=== PATIENT | male | born 1990 | race Caucasian/White ===

== ENCOUNTER 2020-05-17 05:15 | Emergency (ER) | payer SELFPAY ==
--- NOTE | ~2020-05-17 | XR_ITS ---
EXAMINATION: XR chest 1V portable EXAM DATE: 05/17/2020 06:02 INDICATION: Hematemesis. TECHNIQUE: Portable AP frontal chest x-ray was obtained. There is no prior study for comparison. FINDINGS: The lungs are clear. There are no pleural effusions. The cardiomediastinal silhouette is within normal limits. There is no pneumothorax suspected. The bones and soft tissues are unremarkab le. IMPRESSION: Unremarkable chest x-ray exam. Reviewed, dictated and finalized at location A.
[2020-05-17 05:19] VITALS: BP 142/81; PULSE 93; RESP 19; TEMP 36.2; O2SAT 100
--- NOTE | 2020-05-17 05:21 | ED.ABDPAIN ---
HPI - Abdominal Pain General Chief Complaint: Abdominal Pain Stated Complaint: stomach hurting more than normal Time Seen by Provider: 05/17/20 05:18 History of Present Illness HPI narrative: He had epigastric pain and multiple episodes of forceful vomiting this morning. This was followed by one episode of gross hematemesis. He produced a handful of blood. He reports about 7/10 epigastric pain. He has had pain and occasional vomiting due to acid reflux before. This is worse than usual. Related Data Allergies Allergy/AdvReac Type Severity Reaction Status Date / Time amoxicillin Allergy Dyspnea / Verified 05/17/20 05:41 SOB Sulfa (Sulfonamide AdvReac Gastrointestinal Verified 05/17/20 05:41 Antibiotics) Upset Review of Systems Review of Systems: All systems reviewed & are unremarkable except as noted in HPI and below Constitutional: Constitutional: Denies fever(s) ENT: Denies sore throat Cardiovascular: Cardiovascular: Denies chest pain Respiratory: Respiratory: Denies dyspnea Gastrointestinal: Gastrointestinal: Reports abdominal pain, Reports nausea and Reports vomiting Neurologic: Denies dizziness and Denies weakness Hematologic/Lymphatic: Hematologic/Lymphatic: Denies easy bleeding PMFSH Past Medical History Medical History (Updated 05/18/20 @ 00:00 by Everette Vázquez) GERD (gastroesophageal reflux disease) Social History Social History Gender identity (if verbalized by the patient): Male Exam Const: General: healthy appearing, no acute distress and alert Orientation/consciousness: patient oriented x3 HENMT: Head: normal to inspection Neck: Neck: normal visual inspection and no lymphadenopathy Chest: Chest palpation & inspection: no tenderness Resp: Effort & Inspection: normal respiratory effort Auscultation: clear to auscultation bilaterally, no rales, no rhonchi and no wheezes Cardio: Jugular venous distension: no JVD Rate: regular rate Rhythm: regular rhythm Heart sounds: no murmurs GI: Inspection: non-distended GI Palp: Yes Soft to palpation and No Tenderness to palpation present (GI) Skin: General skin exam: normal color Neuro: General: patient oriented x3 and moves all extremities Speech: normal speech Extrem: General: no edema Psych: Appearance: well kempt Affect: normal affect Course Vital Signs Vital signs: Vital Signs Temperature 36.2 C L 05/17/20 05:19 Pulse Rate 93 05/17/20 05:19 Respiratory Rate 19 05/17/20 05:19 Blood Pressure 142/81 H 05/17/20 05:19 Pulse Oximetry 100 05/17/20 05:19 Temperature 36.2 C L 05/17/20 05:19 Pulse Rate 77 05/17/20 07:12 Respiratory Rate 20 05/17/20 07:12 Blood Pressure 131/87 05/17/20 07:12 Pulse Oximetry 99 05/17/20 07:12 MDM - Abdominal Pain MDM Narrative Medical decision making narrative: History sounds most consistent with willa-dunn tear. Will get labs. Treat symptomatically and observe for signs of ongoing bleeding. Medical Records Attestation: I reviewed the patient's medical records. Lab Data Attestation: I reviewed the patient's lab results. Result diagrams: 05/17/20 05:32 05/17/20 05:32 Labs: Lab Results 05/17/20 05/17/20 Range/Units 05:32 05:32 WBC 8.7 (4.5-10.0) K/mm3 RBC 5.21 (4.6-6.20) M/mm3 Hgb 16.3 (14.0-18.0) g/dL Hct 46.4 (42.0-52.0) % MCV 89.1 (80-100) fl MCH 31.3 (26-34) pg MCHC 35.1 (32-36) g/dl RDW 12.0 (11.5-14.5) % Plt Count 270 (150-375) k/mm3 MPV 9.9 (7.4-10.4) fl Immature Gran % (Auto) 0.5 (0-0.5) % Neut % (Auto) 70.0 (45.5-73.1) % Lymph % (Auto) 21.6 (18.3-44.2) % [place] % (Auto) 6.5 (2.6-8.5) % Eos % (Auto) 0.9 (0-4.4) % Baso % (Auto) 0.5 (0.2-1.2) % Lymph # (Auto) 1.87 (0.9-3.2) K/mm3 [place] # (Auto) 0.6 (0.1-0.6) K/mm3 Eos # (Auto) 0.1 (0-0.3) K/mm3 Baso # (Auto) 0.0 (0.0-
[2020-05-17] MEDS: ONDANSETRON INJ 4 MG/2 ML VIAL IV PUSH (05:36)
[2020-05-17] MEDS: SODIUM CHLORIDE 0.9% IV 1,000 ML 999 ML IV CONT (05:36)
[2020-05-17] MEDS: PANTOPRAZOLE SODIUM IV 40 MG VIAL IV PUSH (05:36)
[2020-05-17 05:37] LABS: Basophils Percent Auto 0.5 % (0.2-1.2); Eosinophils Absolute Auto 0.1 K/mm3 (0-0.3); Eosinophils Percent Auto 0.9 % (0-4.4); Hematocrit 46.4 % (42.0-52.0); Hemoglobin 16.3 g/dL (14.0-18.0); Immature Granulocyte Absolute 0.04 K/mm3 (0.00-0.031); Immature Granulocyte Percent A 0.5 % (0-0.5); Lymphocytes Absolute Auto 1.87 K/mm3 (0.9-3.2); Lymphocytes Percent Auto 21.6 % (18.3-44.2); Mean Corpuscular HGB Conc 35.1 g/dl (32-36); Mean Corpuscular Hemoglobin 31.3 pg (26-34); Mean Corpuscular Volume 89.1 fl (80-100); Mean Platelet Volume 9.9 fl (7.4-10.4); Monocytes Absolute Auto 0.6 K/mm3 (0.1-0.6); Monocytes Percent Auto 6.5 % (2.6-8.5); Neutrophils Absolute Auto 6.1 K/mm3 (1.3-6.7); Platelet Count Result 270 k/mm3 (150-375); Red Blood Count 5.21 M/mm3 (4.6-6.20); White Blood Count 8.7 K/mm3 (4.5-10.0)
[2020-05-17 05:51] LABS: Alanine Aminotransferase 63 U/L (4-50); Albumin Level 4.9 g/dL (3.5-5.1); Alkaline Phosphatase 76 U/L (38-126); Anion Gap 12.9 mmol/L (7-16); Aspartate Amino Transferase 37 U/L (17-59); Bilirubin,Total 0.8 mg/dL (0.2-1.3); Blood Urea Nitrogen 13 mg/dL (9-20); Calcium 9.8 mg/dL (8.4-10.2); Carbon Dioxide 27 mmol/L (22-30); Chloride 101 mmol/L (98-107); Estimated CRCL calculation 108 ml/min; Estimated Glomerular Filt Rate > 60; Glucose 121 mg/dL (75-110); Lipase 106 U/L (23-300); Potassium 3.9 mmol/L (3.4-5.0); Sodium 137 mmol/L (137-145)
[2020-05-17 06:34] VITALS: BP 126/77; PULSE 63; RESP 18; O2SAT 98
[2020-05-17 07:12] VITALS: BP 131/87; PULSE 77; RESP 20; O2SAT 99
== END 2020-05-17 07:15 | disposition home or self-care (01) ==
PROVIDERS: Emergency Provider Emergency Medicine
DX: K22.6 Gastro-esophageal laceration-hemorrhage syndrome (principal); R11.2 Nausea with vomiting, unspecified; K21.9 Gastro-esophageal reflux disease without esophagitis
CPT/HCPCS: 36415; 71045; 80053; 83690; 85025; 96361; 96374; 96375; 99284; A9270; C9113; J2405; J7030

== ENCOUNTER 2020-09-15 17:53 | Emergency (ER) | payer SELFPAY ==
[2020-09-15 18:07] VITALS: BP 151/86; PULSE 101; RESP 20; TEMP 37.6; O2SAT 100
--- NOTE | 2020-09-15 18:07 | ED.GENADULT ---
HPI - General Adult General Chief complaint: Nausea/Vomiting/Diarrhea Stated complaint: Stomach pain/vomiting Time Seen by Provider: 09/15/20 18:07 Source: patient Mode of arrival: ambulatory Limitations: no limitations History of Present Illness HPI narrative: 30-year-old male patient presents to the [facility] with complaints of nausea, vomiting and epigastric pain for the past 1 to 2 days. Patient states he had similar symptoms to this a couple months ago and was seen in the ER was diagnosed with GERD. Patient was given prescriptions but never got them filled. Patient denies any fevers, body aches or chills. Denies any diarrhea. Patient states he did throw up this morning couple of times and states that there was blood. Patient states it was kind of bright red and mixed in with some mucus. Patient states the last time he ate was this morning and states he ate a leftover Thanksgiving meal from yesterday. Patient states he has not eaten anything since this morning. Patient states that the pain does get worse when laying down. Patient denies any abdominal pain. Patient does admit to a poor diet states he usually does drink a lot of carbonated beverages, a lot of junk food and a lot of high salty foods along with spicy food. Related Data Allergies Allergy/AdvReac Type Severity Reaction Status Date / Time amoxicillin Allergy Dyspnea / Verified 09/15/20 18:33 SOB Sulfa (Sulfonamide AdvReac Gastrointestinal Verified 09/15/20 18:33 Antibiotics) Upset Review of Systems Review of Systems: Narrative: CONSTITUTIONAL: Denies fever, chills, or sweats. EYES: Denies visual changes, redness, or discharge. ENT: Denies rhinorrhea, congestion, sore throat, or otalgia. CARDIOVASCULAR: Denies chest pain, palpitations, or edema. RESPIRATORY: Denies cough or dyspnea. GASTROINTESTINAL: Positive epigastric pain, positive nausea, vomiting, denies diarrhea. GENITOURINARY: Denies dysuria or hematuria. SKIN: Denies rash or itching. MUSCULOSKELETAL: Denies back pain, joint pain, or myalgia. NEUROLOGIC: Denies headache, numbness, or weakness. PSYCHIATRIC: Denies anxiety or depression. [facility] Past Medical History Medical History GERD (gastroesophageal reflux disease) Social History Social History Gender identity (if verbalized by the patient): Male Comments At the time of my signature I agree with nursing past medical history, surgical, social, and family history. There is no relevant family history pertinent to the presenting complaint. Exam Narrative: Exam Narrative: GENERAL: Well-appearing, well-nourished, and in no acute distress. HEAD: Normocephalic, atraumatic. EYES: PERRLA and EOMI. ENT: Nares clear, no rhinorrhea or epistaxis. Mucous membranes moist. NECK: Supple. No lymphadenopathy CHEST: Clear to auscultation. No respiratory distress. HEART: Regular rate and rhythm. No murmur heard. Normal peripheral pulses. ABDOMEN: Soft, flat, nondistended. No guarding, rebound tenderness, or rigid. No pulsatilla masses. Hypoactive bowel sounds present in all four quadrants. No organomegaly. Negative Stover?s sign. No periumbicial tenderness. No Supra public tenderness or distension. Good femoral pulses bilaterally. No hernia noted. No scars or surface trauma. EXTREMITIES: Normal range of motion. No edema. SKIN: Warm, dry, no rash. NEURO: No focal deficits. Alert and oriented x3. Course Vital Signs Vital signs: Vital Signs Temperature 37.6 C 09/15/20 18:07 Pulse Rate 101 H 09/15/20 18:07 Respiratory Rate 09/15/20 18:07 Blood Pressure 151/86 H 09/15/20 18:07 Pulse Oximetry 100 09/15/20 18:07 Temperature 37.6 C 09/15/20 18:07 Pulse Rate 101 H 09/15/20 18:07 Respiratory Rate 09/15/20 18:07 Blood Pressure 151/86 H 09/15/20 18:07 Pulse Oximetry 100 09/15/20 18:07 Vital signs reviewed
[2020-09-15] MEDS: ONDANSETRON HCL ODT 4 MG TABLET PO (18:19)
== END 2020-09-15 18:43 | disposition home or self-care (01) ==
PROVIDERS: Emergency Provider Nurse Practitioner Family
DX: K21.9 Gastro-esophageal reflux disease without esophagitis (principal)
CPT/HCPCS: 99213; A9270; G0463

== ENCOUNTER 2022-04-25 18:02 | Emergency (ER) | payer SELFPAY ==
[2022-04-25 18:20] VITALS: BP 133/76; PULSE 93; RESP 18; TEMP 37.3; O2SAT 100
--- NOTE | 2022-04-25 18:33 | ED.SKABFB ---
HPI - Skin/Abscess/Foreign Bdy General Chief complaint: Dental/Oral Stated complaint: abscess lt jaw Source: patient, RN notes reviewed and old records reviewed Mode of arrival: ambulatory Limitations: no limitations History of Present Illness HPI narrative: 31 year old male who presents to [facility] care with complaints of Related Data Allergies Allergy/AdvReac Type Severity Reaction Status Date / Time amoxicillin Allergy Dyspnea / Verified 09/15/20 18:33 SOB Sulfa (Sulfonamide AdvReac Gastrointestinal Verified 09/15/20 18:33 Antibiotics) Upset Review of Systems Review of Systems: CONSTITUTIONAL: Denies fever, chills, or sweats. EYES: Denies visual changes, redness, or discharge. ENT: Denies rhinorrhea, congestion, sore throat, or otalgia.facial swelling left side of face with dental pain #19 tooth CARDIOVASCULAR: Denies chest pain, palpitations, or edema. RESPIRATORY: Denies cough or dyspnea. GASTROINTESTINAL: Denies abdominal pain, nausea, vomiting, or diarrhea. GENITOURINARY: Denies dysuria or hematuria. SKIN: Denies rash or itching. MUSCULOSKELETAL: Denies back pain, joint pain, or myalgia. NEUROLOGIC: Denies headache, numbness, or weakness. PSYCHIATRIC: Positive history of anxiety or depression. All systems reviewed & are unremarkable except as noted in HPI and below PMFSH Past Medical History Medical History GERD (gastroesophageal reflux disease) History of dental problems Social History Social History Gender identity (if verbalized by the patient): Male Comments At time of signature, agree with nursing past medical, surgical, social and family history. There is no relevant family history pertinent to the presenting complaint Exam Narrative: GENERAL: Well-appearing, well-nourished, and in no acute distress. HEAD: Normocephalic, atraumatic. EYES: PERRLA and EOMI. ENT: Nares clear, no rhinorrhea or epistaxis. Mucous membranes moist.TM's normal with good light reflex, throat pink with no lesions or exudates. swelling and redness of gums around #19 tooth with obvious caries to tooth noted, no Tam angina noted, patient does have moderate of swelling to left side of face NECK: Supple. no lymphadenopathy CHEST: Clear to auscultation. No respiratory distress.SAO2 100% on room air HEART: Regular rate and rhythm. No murmur heard. Normal peripheral pulses. ABDOMEN: Soft, nontender, nondistended, normal active bowel sounds. EXTREMITIES: Normal range of motion. No edema. SKIN: Warm, dry, no rash. NEURO: No focal deficits. Alert and oriented x3. Course Course Level of Care: Express Care Visit Vital Signs Vital signs: Vital Signs Temperature 37.3 C 04/25/22 18:20 Pulse Rate 93 04/25/22 18:20 Respiratory Rate 18 04/25/22 18:20 Blood Pressure 133/76 04/25/22 18:20 Pulse Oximetry 100 04/25/22 18:20 Oxygen Delivery Room Air 04/25/22 18:20 Temperature 37.3 C 04/25/22 18:20 Pulse Rate 93 04/25/22 18:20 Respiratory Rate 18 04/25/22 18:20 Blood Pressure 133/76 04/25/22 18:20 Pulse Oximetry 100 04/25/22 18:20 Oxygen Delivery Room Air 04/25/22 18:20 MDM - Skin/Abscess/Foreign Bdy Differential Diagnosis Differential diagnosis: Likely abscess of skin or subcutaneous tissue, cellulitis, eczema and contact dermatitis Medical Records Attestation: I reviewed the patient's medical records. Critical Care Time Critical Care Time Critical Care Time: No Discharge Plan Discharge Clinical Impression: Dental abscess, Facial swelling Patient Disposition: Home, Self-Care Condition: Stable Instructions: Antibiotic Form, Dental Abscess (ED) Additional Instructions: Avoid temperature extremes May apply heat or ice to the face Gentle brushing and flossing Antibiotic as directed take all doses Tylenol for lesser pain Use ibuprofen regularly Follow-up
--- NOTE | 2022-04-25 19:04 | ED.DENTAL ---
HPI - Dental/Oral General Chief complaint: Dental/Oral Stated complaint: abscess lt jaw Source: patient, RN notes reviewed and old records reviewed Mode of arrival: ambulatory Limitations: no limitations History of Present Illness HPI Narrative: 31 year old male presents to [facility] care with complaints of swelling and pain to his left jaw area for the past 2 days with dental pain to #19 tooth with swelling and pain to the gum surrounding the tooth. Patient denies any difficulty swallowing or any trouble with his breathing. Patient reports that he has been taking Ibuprofen for his discomfort. Patient reports that he has had problems with his teeth for some time and has had previous dental abscess in front upper gum.Patient has had COVID vaccinations but no flu shot. MD Complaint: tooth pain Location: Tooth # (19) Onset (ago): day(s) (2) Treatment prior to arrival: oral analgesic Related Data Allergies Allergy/AdvReac Type Severity Reaction Status Date / Time amoxicillin Allergy Dyspnea / Verified 09/15/20 18:33 SOB Sulfa (Sulfonamide AdvReac Gastrointestinal Verified 09/15/20 18:33 Antibiotics) Upset Review of Systems Review of Systems: CONSTITUTIONAL: Denies fever, chills, or sweats. EYES: Denies visual changes, redness, or discharge. ENT: Denies rhinorrhea, congestion, sore throat, or otalgia.positive for dental pain to #19 tooth. CARDIOVASCULAR: Denies chest pain, palpitations, or edema. RESPIRATORY: Denies cough or dyspnea. GASTROINTESTINAL: Denies abdominal pain, nausea, vomiting, or diarrhea. GENITOURINARY: Denies dysuria or hematuria. SKIN: Denies rash or itching. MUSCULOSKELETAL: Denies back pain, joint pain, or myalgia. NEUROLOGIC: Denies headache, numbness, or weakness. PSYCHIATRIC: Positive for anxiety or depression. PMFSH Past Medical History Medical History GERD (gastroesophageal reflux disease) History of dental problems Social History Social History Gender identity (if verbalized by the patient): Male Comments At time of signature, agree with nursing past medical, surgical, social and family history. There is no relevant family history pertinent to the presenting complaint Exam Narrative: GENERAL: Well-appearing, well-nourished, and in no acute distress. HEAD: Normocephalic, atraumatic. EYES: PERRLA and EOMI. ENT: Nares clear, no rhinorrhea or epistaxis. Mucous membranes moist.TM's normal with good light reflex, throat pink with no lesions or exudates or tonsil swelling. #19 tooth has noted decay with abscess noted to gum surrounding tooth with swelling and swelling noted to face, No Tam angina noted, denies any difficulty with swallowing NECK: Supple. no lymphadenopathy CHEST: Clear to auscultation. No respiratory distress.SAO2 100% on room air HEART: Regular rate and rhythm. No murmur heard. Normal peripheral pulses. ABDOMEN: Soft, nontender, nondistended, normal active bowel sounds. EXTREMITIES: Normal range of motion. No edema. SKIN: Warm, dry, no rash. NEURO: No focal deficits. Alert and oriented x3. Course Course Level of Care: Express Care Visit Vital Signs Vital signs: Vital Signs Temperature 37.3 C 04/25/22 18:20 Pulse Rate 93 04/25/22 18:20 Respiratory Rate 18 04/25/22 18:20 Blood Pressure 133/76 04/25/22 18:20 Pulse Oximetry 100 04/25/22 18:20 Oxygen Delivery Room Air 04/25/22 18:20 Temperature 37.3 C 04/25/22 18:20 Pulse Rate 93 04/25/22 18:20 Respiratory Rate 18 04/25/22 18:20 Blood Pressure 133/76 04/25/22 18:20 Pulse Oximetry 100 04/25/22 18:20 Oxygen Delivery Room Air 04/25/22 18:20 MDM - Dental/Oral Differential Diagnosis Differential diagnosis: Likely gingival abscess, dental caries, toothache, dental abscess and other (dentalgia, facial swelling) Medical Records Attestation: I reviewed the patient's medica
== END 2022-04-25 19:20 | disposition home or self-care (01) ==
PROVIDERS: Emergency Provider Registered Nurse
DX: K04.7 Periapical abscess without sinus (principal); K21.9 Gastro-esophageal reflux disease without esophagitis
CPT/HCPCS: 99213; G0463

== ENCOUNTER 2022-07-24 12:51 | Inpatient (IN) | payer MEDICAID, SELFPAY ==
[2022-07-24] VITALS (7 sets, daily range): BP systolic 116–141; BP diastolic 67–89; PULSE 94–109; RESP 15–28; TEMP 36.7–37; O2SAT 92–97
--- NOTE | 2022-07-24 | ECHO_ITS ---
Patient Info Name: Pawel Cagle Age: 32 years : 1990 Gender: Male Ht: 75 in Wt: 245 lbs BSA: 2.45 m2 HR: 106 bpm BP: 135 / 87 mmHg Heart Rhythm: Tachycardia, Sinus Rhythm Exam Date: 07/24/2022 3:39 PM Exam Location: [facility] Patient Status: Inpatient Admit Date: 07/24/2022 Staff Ordering Physician: Pao Lucas NP [place]: Estelita Velázquez RDCS Attending Provider: Preet Leyva MD Referring Physician: Shayy LICONA; Exam Type: CA echo doppler color flow Study Info Indications - pulmonary embolism Complete two-dimensional, color flow and Doppler transthoracic echocardiogram is performed. Summary 1. Technically difficult study with limited views. Regional wall motion assessment limited due to poor endomyocardial border definition. 2. Left ventricular chamber dimension is normal. 3. Left ventricular systolic function is hyperdynamic, estimated at >70%. 4. There is mildly increased left ventricular wall thickness. 5. The left ventricular diastolic function is indeterminate. 6. Right ventricular systolic function is [id number] reduced with right ventricular free wall hypokinesis and sparing of the apex consistent with Melchor sign which can be seen with acute pulmonary embolism and/or right ventricular infarction. Clinical correlation advised. Findings communicated personally to Pao Lucas APN. 7. Right ventricular chamber dimension is mildly enlarged. 8. Right atrial chamber dimension is normal. 9. There is mild tricuspid valve regurgitation. 10. Unable to estimate PA systolic pressure due to poor spectral resolution of tricuspid regurgitant jet velocity. 11. Dilated inferior vena cava with <50% collapse upon inspiration consistent with elevated right atrial pressure, 10 mmHg. Left Ventricle Left ventricular chamber dimension is normal. Left ventricular systolic function is hyperdynamic, estimated at >70%. There is mildly increased left ventricular wall thickness. The left ventricular diastolic function is indeterminate. Technically difficult study with limited views. Regional wall motion assessment limited due to poor endomyocardial border definition. Right Ventricle Right ventricular chamber dimension is mildly enlarged. Right ventricular systolic function is [id number] reduced with right ventricular free wall hypokinesis and sparing of the apex consistent with Melchor sign which can be seen with acute pulmonary embolism and/or right ventricular infarction. Clinical correlation advised. Findings communicated personally to Pao Lucas APN. Left Atria Left atrial chamber dimension is normal. Right Atria Right atrial chamber dimension is normal. Aortic Valve The aortic valve is not well visualized. There is no aortic valve stenosis. There is no aortic valve regurgitation. Pulmonic Valve The pulmonic valve is not well visualized. Mitral Valve The mitral valve has normal leaflets. There is trace mitral valve regurgitation. Tricuspid Valve The tricuspid valve leaflets are normal. There is mild tricuspid valve regurgitation. Unable to estimate PA systolic pressure due to poor spectral resolution of tricuspid regurgitant jet velocity. Pericardium/Pleural The pericardium appears not well visualized. Inferior Vena Cava Dilated inferior vena cava with <50% collapse upon inspiration consistent with elevated right atrial pressure, 10 mmHg. Aorta The aortic root size at the sinus of Valsalva is normal.
--- NOTE | ~2022-07-24 | XR_ITS ---
EXAMINATION: XR chest 1V portable DATE: 07/24/2022 13:23 INDICATION: Chest pain. TECHNIQUE: A single frontal view of the chest was obtained on 2 radiographs. COMPARISON: Chest single view 05/17/2020 FINDINGS: The chest demonstrates clear lungs without pneumonia, pleural effusion, or pneumothorax. Th e heart size is normal. IMPRESSION: 1. No acute cardiopulmonary disease. Reviewed, dictated and finalized at location A.
--- NOTE | ~2022-07-24 | US_ITS ---
EXAMINATION:US venous doppler LE BI INDICATION:Pulmonary embolism. TECHNIQUE: Multiple grayscale, color flow and Doppler images of the right and left lower extremity de ep venous systems were obtained and reviewed. COMPARISON:CTA chest dated 07/24/2022 FINDINGS: The right common femoral, superficial femoral and popliteal veins demonstrate normal respir atory variation, augmentation and compressibility. Color flow is also seen within the posterior tibi al, peroneal, greater saphenous and profunda veins. There is deep venous thrombosis of the left popliteal and posterior tibial veins. IMPRESSION: 1: Deep venous thrombosis of the left popliteal and posterior tibial veins. Reviewed, dictated and finalized at location B.
--- NOTE | ~2022-07-24 | CT_ITS ---
EXAMINATION: CTA chest PE protocol DATE: 07/24/2022 14:11 CDT INDICATION: Shortness of breath with chest pain TECHNIQUE: Computed tomographic angiography (CTA) of the chest was performed with 100 mL Omnipaque-35 0 intravenous contrast. The dose-length product was 629.49 mGy-cm. Maximum intensity projection 3D-re constructions of the aorta and other arteries were constructed by the technologist on a separate work station. Automated exposure control and iterative reconstruction technique were employed. COMPARISON: None. FINDINGS: Study is technically adequate with extensive pulmonary embolism involving the main pulmonar y artery, right and left pulmonary arteries is as well as diffusely throughout the bilateral segmenta l and subsegmental pulmonary arteries, large thrombus burden. No significant pleural or pericardial e ffusion. There is minimal peripheral consolidation in the right lower lobe which may represent atelec tasis or pulmonary infarction. No endobronchial lesions. No suspicious pulmonary nodules or masses. N o pneumothorax. No thoracic lymphadenopathy. Upper abdomen is unremarkable. There is moderate thoraci c spondylosis with mild wedge compression deformities of multiple lower thoracic vertebra as well as accentuated thoracic kyphosis. IMPRESSION: 1. Extensive bilateral pulmonary embolism, large thrombus burden bilaterally. 2: Peripheral right lower lobe airspace disease which may represent atelectasis or pulmonary infarct. Dr. Keo Stringer discussed with Dr. Anaid Qureshi III, DO at 07/24/2022 14:13 CDT. Reviewed, dictated and finalized at location B.
--- NOTE | 2022-07-24 12:52 | ECG_ITS ---
Measurements Intervals [place] Rate: 92 P: 70 AK: 133 QRS: 73 QRSD: 99 T: 45 QT: 329 QTc: 408 Interpretive Statements SINUS RHYTHM BASELINE ARTIFACT NORMAL ECG NO PREVIOUS ECG AVAILABLE FOR COMPARISON Electronically Signed On 07-24-2022 15:24:20 CDT by Pawel Reis M.D.
[2022-07-24 13:12] LABS: Basophils Absolute Auto 0.1 K/mm3 (0.0-0.1); Basophils Percent Auto 0.5 % (0.2-1.2); Eosinophils Absolute Auto 0.2 K/mm3 (0-0.3); Eosinophils Percent Auto 1.6 % (0-4.4); Hematocrit 46.6 % (42.0-52.0); Hemoglobin 15.7 g/dL (14.0-18.0); Immature Granulocyte Absolute 0.05 K/mm3 (0.00-0.031); Immature Granulocyte Percent A 0.4 % (0-0.5); Lymphocytes Absolute Auto 2.41 K/mm3 (0.9-3.2); Lymphocytes Percent Auto 19.6 % (18.3-44.2); Mean Corpuscular HGB Conc 33.7 g/dl (32-36); Mean Corpuscular Volume 91.9 fl (80-100); Mean Platelet Volume 9.8 fl (7.4-10.4); Monocytes Absolute Auto 0.9 K/mm3 (0.1-0.6); Monocytes Percent Auto 7.6 % (2.6-8.5); Neutrophils Absolute Auto 8.6 K/mm3 (1.3-6.7); Neutrophils Percent Auto 70.3 % (45.5-73.1); Platelet Count Result 256 k/mm3 (150-375); Red Blood Count 5.07 M/mm3 (4.6-6.20); Red Cell Distribution Width 12.5 % (11.5-14.5); White Blood Count 12.3 K/mm3 (4.5-10.0)
--- NOTE | 2022-07-24 13:23 | ED.CHESTPAIN ---
HPI - Chest Pain General Chief Complaint: Chest Pain Stated Complaint: CHEST PAIN/SOB Time Seen by Provider: 07/24/22 13:12 History of Present Illness HPI narrative: Pt was picking up a door [employer] order today and became acutely short of breath. Pt says he has some pressure in his chest. Pt says he had trouble walking across parking lot due to SOB. Pt also says his left calf has been hurting for the last few days but denies injury. Pt has not had recent surgery or been on any long trips. Pt denies any FH of blood clots. Pt sasy the SOB is better when he is resting. Related Data Allergies Allergy/AdvReac Type Severity Reaction Status Date / Time amoxicillin Allergy Severe Swelling Verified 07/24/22 17:29 of Lip/Tongue/Throat Penicillins Allergy Severe Swelling Verified 07/24/22 17:29 of Lip/Tongue/Throat Sulfa (Sulfonamide AdvReac Intermediate Gastrointestinal Verified 07/24/22 17:29 Antibiotics) Upset Review of Systems Review of Systems: All systems reviewed & are unremarkable except as noted in HPI and below PMFSH Past Medical History Medical History (Updated 07/24/22 @ 16:27 by Pao Lucas NP) GERD (gastroesophageal reflux disease) History of dental problems Surgical History Surgical History History of dental surgery Family History Family History Father Acute myocardial infarction Blood clot in vein Lung cancer Mother Esophageal cancer Diabetes mellitus Social History Social History (Updated 07/24/22 @ 16:23 by Pao Lucas NP) Social History: The patient has no children. He now Lives in car since he broke up with his girlfriend. He is single. He works for [employer]. He used to smoke cigars and now vapes some. He does not have any durable power criminal attorney for healthcare. Code status full code Smoking status: Former smoker Tobacco type: cigars Alcohol intake: current Drinks per week: 1 Substance use: current Substance use type: marijuana Last use: 1 week ago Gender identity (if verbalized by the patient): Male Spiritual care concerns: No Exam Const: General: healthy appearing and no acute distress Nutritional Appearance: well nourished Orientation/consciousness: patient oriented x3 Limitations: no limitations HENMT: Head: normal to inspection Neck: Neck: normal visual inspection Chest: Chest palpation & inspection: normal inspection of the chest Resp: Effort & Inspection: tachypneic Auscultation: clear to auscultation bilaterally Cardio: Rate: regular rate Rhythm: regular rhythm GI: Auscultation: normal bowel sounds Skin: General skin exam: normal color Rashes: no rashes Wounds: no wounds Neuro: General: patient oriented x3 Cranial nerves: Yes Nystagmus not present Speech: normal speech Extrem: General: normal to inspection and no clubbing, cyanosis or edema Other: tender to palpation left calf no obvious swelling Psych: Mental Status: mental status grossly normal Affect: normal affect Attitude: cooperative Course Vital Signs Vital signs: Vital Signs Temperature 98.0 F 07/24/22 12:59 Pulse Rate 94 07/24/22 12:59 Respiratory Rate 20 07/24/22 12:59 Blood Pressure 116/67 07/24/22 12:59 Pulse Oximetry 97 07/24/22 12:59 Oxygen Delivery Room Air 07/24/22 12:59 Temperature 98.6 F 07/24/22 17:00 Pulse Rate 108 H 07/24/22 17:00 Respiratory Rate 22 H 07/24/22 17:00 Blood Pressure 141/89 H 07/24/22 17:00 Pulse Oximetry 95 07/24/22 17:00 Oxygen Delivery Room Air 07/24/22 13:22 MDM - Chest Pain Differential Diagnosis Differential diagnosis: Likely pneumothorax, atypical chest pain, st elevation myocardial infarction, costochondritis, chest pain and other (PE) Lab Data Result diagrams: 07/24/22 17:16 07/24/22 13:04 Labs: Lab R
[2022-07-24 13:24] LABS: Alanine Aminotransferase 27 U/L (6-50); Albumin Level 4.8 g/dL (3.5-5.1); Alkaline Phosphatase 98 U/L (38-126); Anion Gap 14 mmol/L (8-16); Aspartate Amino Transferase 27 U/L (17-59); Bilirubin,Total 0.7 mg/dL (0.2-1.3); Blood Urea Nitrogen 19 mg/dL (9-20); Calcium 9.7 mg/dL (8.4-10.2); Carbon Dioxide 29 mmol/L (22-30); Chloride 98 mmol/L (98-107); Estimated Glomerular Filt Rate > 60; Glucose 135 mg/dL (65-110); Lipase 74 U/L (23-300); Partial Thromboplastin Time 22.6 SECONDS (22.3-36.8); Potassium 3.8 mmol/L (3.4-5.0); Sodium 141 mmol/L (137-145)
[2022-07-24 13:35] LABS: Troponin I 0.031 ng/mL (0.000-0.034)
--- NOTE | 2022-07-24 14:40 | PM.IMHP ---
H&P: HPI History of Present Illness Date/Time: 07/24/22 14:40 Chief Complaint: Chest pain/shortness of breath Narrative: This is a 32-year-old male patient who has a past medical history of GERD and no other medical history. 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 The patient has been sleeping in his car. He has also been doing a lot of driving as well. The patient stated that his father had developed a DVT after he was diagnosed with cancer. Otherwise no other family members have had PEs or DVTs. The patient also stated that he had a pain in his left calf as well. He denies any injury or recent surgery. The patient is short of breath when resting. His venous Doppler shows deep vein thrombosis of the left popliteal and posterior tibial veins. CTA was read as the following 1. Extensive bilateral pulmonary embolism, large thrombus burden bilaterally. 2: Peripheral right lower lobe airspace disease which may represent atelectasis or pulmonary infarct. Hypercoagulation labs have been ordered and the patient was started on heparin drip. The patient is being admitted to observation status on the date of service of 07/24/2022. Review of Systems Review of Systems: See HPI All systems reviewed & are unremarkable except as noted in HPI and below Constitutional: Constitutional: Reports as per HPI and Reports no additional constitutional complaints Eyes: Eyes: Reports as per HPI and Reports no additional eye complaints ENT: Reports system reviewed and no additional complaints, except as documented and Reports Normal hearing present Cardiovascular: Cardiovascular: Reports no additional cardiovascular complaints Respiratory: Respiratory: Reports no additional respiratory complaints and Reports no additional respiratory complaints Gastrointestinal: Gastrointestinal: Reports as per HPI and Reports no additional gastrointestinal complaints Musculoskeletal: Musculoskeletal: Reports no additional musculoskeletal complaints Integumentary/Breasts: Skin/Breast: Reports system reviewed and no additional complaints, except as docu and Reports as per HPI Neurologic: Reports system reviewed and no additional complaints, except as documented, Reports as per HPI and Reports Normal hearing present Psychiatric: Psychiatric: Reports no additional psychiatric complaints and Reports as per HPI Endocrine: Endocrine: Reports no additional endocrine complaints Hematologic/Lymphatic: Hematologic/Lymphatic: Reports no additional hematologic/lymphatic complaints Allergic/Immunologic: Allergic/Immunologic: Reports no additional allergic/immunologic complaints [facility] Past Medical History Medical History (Updated 10/05/22 @ 16:27 by Pao Lucas NP) GERD (gastroesophageal reflux disease) History of dental problems Surgical History Surgical History History of dental surgery Family History Family History Father Acute myocardial infarction Blood clot in vein Lung cancer Mother Esophageal cancer Diabetes mellitus Social History Social History (Updated 07/24/22 @ 16:23 by Pao Lucas NP) Social History: The patient has no children. He now Lives in car since he broke up with his girlfriend. He is single. He works for [employer]. He used to smoke cigars and now vapes some. He does not have any durable power staff attorney for healthcare. Code status full code Gender identity (if verbalized by the patient): Male Meds Home Medications and Allergies Home Medications Medication Instructions Recorded Confirmed Type omeprazole 20 mg capsule,delayed 20 mg PO BID #60 caps 09/15/20 04/25/22 Rx release clindamycin HCl 300 mg capsule 300 mg PO Q8H #30 caps 04/25/22 Rx Allergies Allergy/AdvReac Type Severity Reaction Status
[2022-07-24] MEDS: HEPARIN SODIUM 5,000 UNITS/ML VIAL 7500 UNITS IV PUSH ×2 (15:16→21:30)
[2022-07-24] MEDS: HEPARIN SOD/D5W 100 UNITS/ML 25,000 UNITS/250 ML BAG 15 UNITS IV CONT (15:17)
[2022-07-24 15:25] LABS: SARS-CoV-2 RNA PCR Negative
[2022-07-24] MEDS: PANTOPRAZOLE SODIUM IV 40 MG VIAL IV PUSH ×2 (16:27→21:02)
[2022-07-24 16:51] LABS: Troponin I 0.907 ng/mL (0.000-0.034)
--- NOTE | 2022-07-24 16:59 | ADMGEN ---
This patient, Pawel Cagle, was admitted to IMU Room 206-01 at 1648 on 07/24/2022. Patient/family oriented to hospital policies and general routines including ID bracelet, bed and alarms, visiting hours, pain management, procedures, bathroom and other care routines, personal items, smoking policy, room service/diet, and visiting hours. Information on how to activate the Rapid Response Team has been discussed. Patient/Family are encouraged to report perceived risks to care and to ask questions if they do not understand what they are told or what they should do.
[2022-07-24 17:28] LABS: Basophils Percent Auto 0.3 % (0.2-1.2); Eosinophils Percent Auto 0.3 % (0-4.4); Hematocrit 46.5 % (42.0-52.0); Hemoglobin 16.1 g/dL (14.0-18.0); Immature Granulocyte Absolute 0.07 K/mm3 (0.00-0.031); Immature Granulocyte Percent A 0.5 % (0-0.5); Lymphocytes Percent Auto 12.2 % (18.3-44.2); Mean Corpuscular HGB Conc 34.6 g/dl (32-36); Mean Corpuscular Hemoglobin 30.7 pg (26-34); Mean Corpuscular Volume 88.6 fl (80-100); Mean Platelet Volume 9.7 fl (7.4-10.4); Monocytes Absolute Auto 0.6 K/mm3 (0.1-0.6); Monocytes Percent Auto 4.4 % (2.6-8.5); Neutrophils Absolute Auto 10.8 K/mm3 (1.3-6.7); Neutrophils Percent Auto 82.3 % (45.5-73.1); Platelet Count Result 215 k/mm3 (150-375); Red Blood Count 5.25 M/mm3 (4.6-6.20); Red Cell Distribution Width 12.3 % (11.5-14.5); White Blood Count 13.1 K/mm3 (4.5-10.0)
[2022-07-24 17:42] LABS: Fibrinogen 401 mg/dl (215-510)
[2022-07-24 17:43] LABS: INR 1.1; Prothrombin Time 13.9 Seconds (11.1-14.7)
[2022-07-24 17:45] LABS: Partial Thromboplastin Time 102.1 SECONDS (22.3-36.8)
[2022-07-24 17:55] LABS: Fibrinogen 421 mg/dl (215-510)
[2022-07-24 21:12] LABS: INR 1.1; Prothrombin Time 13.4 Seconds (11.1-14.7)
[2022-07-25] VITALS (13 sets, daily range): BP systolic 110–148; BP diastolic 56–83; PULSE 63–105; RESP 16–18; TEMP 36.4–37.1; O2SAT 94–98
[2022-07-25 03:38] LABS: Basophils Absolute Auto 0.1 K/mm3 (0.0-0.1); Basophils Percent Auto 0.5 % (0.2-1.2); Eosinophils Absolute Auto 0.2 K/mm3 (0-0.3); Eosinophils Percent Auto 1.6 % (0-4.4); Hematocrit 42.1 % (42.0-52.0); Hemoglobin 14.5 g/dL (14.0-18.0); Immature Granulocyte Absolute 0.04 K/mm3 (0.00-0.031); Immature Granulocyte Percent A 0.4 % (0-0.5); Lymphocytes Percent Auto 27.1 % (18.3-44.2); Mean Corpuscular HGB Conc 34.4 g/dl (32-36); Mean Corpuscular Volume 90.1 fl (80-100); Mean Platelet Volume 9.9 fl (7.4-10.4); Monocytes Absolute Auto 0.6 K/mm3 (0.1-0.6); Monocytes Percent Auto 5.7 % (2.6-8.5); Neutrophils Absolute Auto 6.4 K/mm3 (1.3-6.7); Neutrophils Percent Auto 64.7 % (45.5-73.1); Platelet Count Result 192 k/mm3 (150-375); Red Blood Count 4.67 M/mm3 (4.6-6.20); Red Cell Distribution Width 12.7 % (11.5-14.5)
[2022-07-25 03:49] LABS: Alanine Aminotransferase 23 U/L (6-50); Albumin Level 4.1 g/dL (3.5-5.1); Alkaline Phosphatase 79 U/L (38-126); Anion Gap 13 mmol/L (8-16); Aspartate Amino Transferase 26 U/L (17-59); Bilirubin,Total 0.7 mg/dL (0.2-1.3); Blood Urea Nitrogen 17 mg/dL (9-20); Carbon Dioxide 24 mmol/L (22-30); Chloride 103 mmol/L (98-107); Estimated CRCL calculation 116 ml/min; Estimated Glomerular Filt Rate > 60; Glucose 114 mg/dL (65-110); Magnesium 1.9 mg/dL (1.6-2.3); Potassium 3.8 mmol/L (3.4-5.0); Sodium 140 mmol/L (137-145)
[2022-07-25 03:51] LABS: Partial Thromboplastin Time 112.6 SECONDS (22.3-36.8)
[2022-07-25] MEDS: traMADol HCL (*CRX) 50 MG TABLET PO ×3 (05:37→21:14)
[2022-07-25] MEDS: PANTOPRAZOLE SODIUM IV 40 MG VIAL IV PUSH ×2 (07:45→21:15)
[2022-07-25 10:29] LABS: Partial Thromboplastin Time 66.3 SECONDS (22.3-36.8)
[2022-07-25] MEDS: HEPARIN SODIUM 5,000 UNITS/ML VIAL 4000 UNITS IV PUSH ×2 (10:45→23:48)
[2022-07-25] MEDS: ACETAMINOPHEN 500 MG TABLET 1000 MG PO ×2 (10:50→23:45)
--- NOTE | 2022-07-25 11:08 | PM.IMPN ---
Progress Note: A&P Assessment and Plan (1) Pulmonary emboli: Code(s): I26.99 - Other pulmonary embolism without acute cor pulmonale Status: Acute Assessment and Plan: -the patient has been sleeping in his car which may have contributed to this. -I have also added a hyper coagulation lab panel as well. -the patient also has a DVT to the left leg. -the patient is on a heparin drip. -since there was a large clot burden I did order an echo. -I also consulted career and transition teacher is the patient has no insurance and no home. (2) GERD (gastroesophageal reflux disease): Code(s): K21.9 - Gastro-esophageal reflux disease without esophagitis Status: Acute Assessment and Plan: Pantoprazole Subjective Date/time seen: 07/25/22 11:08 mild shortness of breath Exam Const: General: cooperative, healthy appearing, comfortable, no acute distress, well developed, alert, awake, Physically active, average body habitus and well nourished Nutritional Appearance: average body habitus and well nourished Orientation/consciousness: oriented to person, oriented to place, oriented to time and patient oriented x3 Limitations: no limitations HENMT: Head: normal to inspection, No palpable skull fracture present, normocephalic and atraumatic Ears: hearing grossly normal bilaterally and external ears normal Face/Nose/Sinus: Normal external nose present and Normal nares present Eyes: General: appearance normal, both eyes and all related structures Alignment and Position: alignment normal Periorbital: periorbital findings normal Eyelids: eyelids normal Sclera: sclerae normal Pupils: Equal, round and reactive pupils present EOM: EOMs intact bilaterally Neck: Neck: normal visual inspection, full ROM, no lymphadenopathy, trachea midline and supple Chest: Chest palpation & inspection: normal inspection of the chest Resp: Effort & Inspection: normal respiratory effort Auscultation: clear to auscultation bilaterally Cardio: Palpation: normal PMI Rate: regular rate Rhythm: regular rhythm Heart sounds: S1 normal heart sound present and S2 normal heart sound present Peripheral pulses: Peripheral pulses 2+ throughout GI: Inspection: normal to inspection Auscultation: normal bowel sounds Rectal Exam: deferred Back/Spine/Pelvis: Cervical Spine: cervical ROM normal Skin: General skin exam: normal color Lesions: no lesions Rashes: no rashes Trauma: no lacerations or abrasions Wounds: no wounds Hair: normal Nails: normal Neuro: General: oriented to person, oriented to place, oriented to time and patient oriented x3 Cranial nerves: Yes Equal, round and reactive pupils present and Yes Normal hearing present Cognition (Neuro): normal cognition Speech: normal speech Gait exam (Neuro): Normal gait present Motor exam (neuro): 5/5 motor strength present throughout Sensory Exam: normal sensation Extrem: General: normal to inspection Right upper extremity: normal to inspection and shoulder/upper arm Left upper extremity: normal to inspection and shoulder/upper arm Right lower extremity: normal to inspection Left lower extremity: normal to inspection Psych: Appearance: grossly normal Mental Status: mental status grossly normal Speech and movement: Normal speech and movement present Affect: normal affect Attitude: cooperative Thought process: Normal thought process present Insight: Good insight present (Psych) Judgement: Good judgement present (Psych) Objective Data Vital Signs Vital Signs: Vital Signs - 24 hr 07/24/22 12:59 07/24/22 13:22 07/24/22 13:22 Temperature 98.0 F Pulse Rate 94 102 H 102 H Respiratory Rate 20 28 H Blood Pressure 116/67 Pulse Oximetry 97 95 Oxygen Delivery Room Air Room Air 07/24/22 13:22 07/24/22 15:21 07/24/22 16:11 Temperature Pulse Rate 103 H 109 H Respiratory Rate 20 15 Blood Pressure 135/87 138/84 Pulse Oximetry 95 96 Oxygen Delivery Room Air 07/24/22
[2022-07-25 11:53] LABS: Prothrombin Time 12.7 Seconds (11.1-14.7)
[2022-07-25] MEDS: WARFARIN (*PBKC) 2 MG, WARFARIN (*PBKC) 5 MG 7 MG PO (12:20)
--- NOTE | 2022-07-25 14:46 | PC.NURSE ---
On 07/25/22, the student, [Criss Lott], provided care and completed [facility] documentation on this patient. I have reviewed the student's documentation and agree with the findings.
--- NOTE | 2022-07-25 16:20 | PC.NURSE ---
IMAN Cedeno notified of patient arrival.
[2022-07-25 17:36] LABS: Partial Thromboplastin Time 92.6 SECONDS (22.3-36.8)
--- NOTE | 2022-07-25 18:10 | PC.NURSE ---
Patient states his last BM was 4.5 days ago and he normally goes twice/day. Pao VALERIO notified.
[2022-07-25] MEDS: DOCUSATE SODIUM 100 MG CAPSULE PO (18:32)
[2022-07-25] MEDS: HEPARIN SOD/D5W 100 UNITS/ML 25,000 UNITS/250 ML BAG 19 UNITS IV CONT (21:56)
[2022-07-25 23:29] LABS: Partial Thromboplastin Time 63.7 SECONDS (22.3-36.8)
[2022-07-26] VITALS (12 sets, daily range): BP systolic 124–146; BP diastolic 70–90; PULSE 69–95; RESP 16–20; TEMP 36.1–36.5; O2SAT 96–100
[2022-07-26] MEDS: traMADol HCL (*CRX) 50 MG TABLET PO ×2 (03:28→10:05)
[2022-07-26 06:35] LABS: Partial Thromboplastin Time 118.2 SECONDS (22.3-36.8)
[2022-07-26] MEDS: ACETAMINOPHEN 500 MG TABLET 1000 MG PO (06:54)
[2022-07-26] MEDS: DOCUSATE SODIUM 100 MG CAPSULE PO ×2 (10:06→20:37)
[2022-07-26] MEDS: HEPARIN SOD/D5W 100 UNITS/ML 25,000 UNITS/250 ML BAG 19 UNITS IV CONT ×2 (10:06→22:43)
[2022-07-26] MEDS: PANTOPRAZOLE SODIUM IV 40 MG VIAL IV PUSH ×2 (10:09→20:37)
--- NOTE | 2022-07-26 10:59 | PM.IMPN ---
Progress Note: A&P Assessment and Plan (1) Pulmonary emboli: Code(s): I26.99 - Other pulmonary embolism without acute cor pulmonale Status: Acute Assessment and Plan: -the patient has been sleeping in his car which may have contributed to this. -I have also added a hyper coagulation lab panel as well. -the patient also has a DVT to the left leg. -the patient is on a heparin drip. -since there was a large clot burden I did order an echo. -I also consulted healthcare project manager is the patient has no insurance and no home. (2) GERD (gastroesophageal reflux disease): Code(s): K21.9 - Gastro-esophageal reflux disease without esophagitis Status: Acute Assessment and Plan: Pantoprazole Subjective Date/time seen: 07/26/22 10:59 no new complaints Exam Const: General: cooperative, healthy appearing, comfortable, no acute distress, well developed, alert, awake, Physically active, average body habitus and well nourished Nutritional Appearance: average body habitus and well nourished Orientation/consciousness: oriented to person, oriented to place, oriented to time and patient oriented x3 Limitations: no limitations HENMT: Head: normal to inspection, No palpable skull fracture present, normocephalic and atraumatic Ears: hearing grossly normal bilaterally and external ears normal Face/Nose/Sinus: Normal external nose present and Normal nares present Eyes: General: appearance normal, both eyes and all related structures Alignment and Position: alignment normal Periorbital: periorbital findings normal Eyelids: eyelids normal Sclera: sclerae normal Pupils: Equal, round and reactive pupils present EOM: EOMs intact bilaterally Neck: Neck: normal visual inspection, full ROM, no lymphadenopathy, trachea midline and supple Chest: Chest palpation & inspection: normal inspection of the chest Resp: Effort & Inspection: normal respiratory effort Auscultation: clear to auscultation bilaterally Cardio: Palpation: normal PMI Rate: regular rate Rhythm: regular rhythm Heart sounds: S1 normal heart sound present and S2 normal heart sound present Peripheral pulses: Peripheral pulses 2+ throughout GI: Inspection: normal to inspection Auscultation: normal bowel sounds Rectal Exam: deferred Back/Spine/Pelvis: Cervical Spine: cervical ROM normal Skin: General skin exam: normal color Lesions: no lesions Rashes: no rashes Trauma: no lacerations or abrasions Wounds: no wounds Hair: normal Nails: normal Neuro: General: oriented to person, oriented to place, oriented to time and patient oriented x3 Cranial nerves: Yes Equal, round and reactive pupils present and Yes Normal hearing present Cognition (Neuro): normal cognition Speech: normal speech Gait exam (Neuro): Normal gait present Motor exam (neuro): 5/5 motor strength present throughout Sensory Exam: normal sensation Extrem: General: normal to inspection Right upper extremity: normal to inspection and shoulder/upper arm Left upper extremity: normal to inspection and shoulder/upper arm Right lower extremity: normal to inspection Left lower extremity: normal to inspection Psych: Appearance: grossly normal Mental Status: mental status grossly normal Speech and movement: Normal speech and movement present Affect: normal affect Attitude: cooperative Thought process: Normal thought process present Insight: Good insight present (Psych) Judgement: Good judgement present (Psych) Objective Data Vital Signs Vital Signs: Vital Signs - 24 hr 07/25/22 12:00 07/25/22 12:00 07/25/22 14:00 Temperature 97.8 F Pulse Rate 93 63 100 Respiratory Rate 16 Blood Pressure 125/62 Pulse Oximetry 95 Oxygen Delivery 07/25/22 16:00 07/25/22 16:00 07/25/22 18:00 Temperature 97.5 F L Pulse Rate 96 85 88 Respiratory Rate 16 Blood Pressure 122/63 Pulse Oximetry 98 Oxygen Delivery 07/25/22 20:00 07/25/22 20:00 07/25/22 22:00 [facility]
[2022-07-26 12:12] LABS: INR 1.1; Prothrombin Time 13.3 Seconds (11.1-14.7)
[2022-07-26 12:30] LABS: Partial Thromboplastin Time 63.8 SECONDS (22.3-36.8)
[2022-07-26] MEDS: HEPARIN SODIUM 5,000 UNITS/ML VIAL 4000 UNITS IV PUSH (13:09)
[2022-07-26 18:29] LABS: Partial Thromboplastin Time 107.3 SECONDS (22.3-36.8)
[2022-07-26] MEDS: WARFARIN (*PBKC) 5 MG TABLET PO (19:29)
[2022-07-26 23:36] LABS: Partial Thromboplastin Time 75.9 SECONDS (22.3-36.8)
[2022-07-27] VITALS (15 sets, daily range): BP systolic 108–165; BP diastolic 53–84; PULSE 68–99; RESP 16–20; TEMP 36.2–37.2; O2SAT 97–100; BMI 27.8
[2022-07-27 07:07] LABS: Partial Thromboplastin Time 72.6 SECONDS (22.3-36.8)
[2022-07-27] MEDS: PANTOPRAZOLE SODIUM IV 40 MG VIAL IV PUSH ×2 (08:39→20:38)
--- NOTE | 2022-07-27 11:30 | PM.IMPN ---
Progress Note: A&P Assessment and Plan (1) Pulmonary emboli: Code(s): I26.99 - Other pulmonary embolism without acute cor pulmonale Status: Acute Assessment and Plan: -the patient has been sleeping in his car which may have contributed to this. -I have also added a hyper coagulation lab panel as well. -the patient also has a DVT to the left leg. -the patient is on a heparin drip. -since there was a large clot burden I did order an echo. -I also consulted school child care attendant is the patient has no insurance and no home. (2) GERD (gastroesophageal reflux disease): Code(s): K21.9 - Gastro-esophageal reflux disease without esophagitis Status: Acute Assessment and Plan: Pantoprazole Subjective Date/time seen: 07/27/22 11:30 Feeling better Exam Const: General: cooperative, healthy appearing, comfortable, no acute distress, well developed, alert, awake, Physically active, average body habitus and well nourished Nutritional Appearance: average body habitus and well nourished Orientation/consciousness: oriented to person, oriented to place, oriented to time and patient oriented x3 Limitations: no limitations HENMT: Head: normal to inspection, No palpable skull fracture present, normocephalic and atraumatic Ears: hearing grossly normal bilaterally and external ears normal Face/Nose/Sinus: Normal external nose present and Normal nares present Eyes: General: appearance normal, both eyes and all related structures Alignment and Position: alignment normal Periorbital: periorbital findings normal Eyelids: eyelids normal Sclera: sclerae normal Pupils: Equal, round and reactive pupils present EOM: EOMs intact bilaterally Neck: Neck: normal visual inspection, full ROM, no lymphadenopathy, trachea midline and supple Chest: Chest palpation & inspection: normal inspection of the chest Resp: Effort & Inspection: normal respiratory effort Auscultation: clear to auscultation bilaterally Cardio: Palpation: normal PMI Rate: regular rate Rhythm: regular rhythm Heart sounds: S1 normal heart sound present and S2 normal heart sound present Peripheral pulses: Peripheral pulses 2+ throughout GI: Inspection: normal to inspection Auscultation: normal bowel sounds Rectal Exam: deferred Back/Spine/Pelvis: Cervical Spine: cervical ROM normal Skin: General skin exam: normal color Lesions: no lesions Rashes: no rashes Trauma: no lacerations or abrasions Wounds: no wounds Hair: normal Nails: normal Neuro: General: oriented to person, oriented to place, oriented to time and patient oriented x3 Cranial nerves: Yes Equal, round and reactive pupils present and Yes Normal hearing present Cognition (Neuro): normal cognition Speech: normal speech Gait exam (Neuro): Normal gait present Motor exam (neuro): 5/5 motor strength present throughout Sensory Exam: normal sensation Extrem: General: normal to inspection Right upper extremity: normal to inspection and shoulder/upper arm Left upper extremity: normal to inspection and shoulder/upper arm Right lower extremity: normal to inspection Left lower extremity: normal to inspection Psych: Appearance: grossly normal Mental Status: mental status grossly normal Speech and movement: Normal speech and movement present Affect: normal affect Attitude: cooperative Thought process: Normal thought process present Insight: Good insight present (Psych) Judgement: Good judgement present (Psych) Objective Data Vital Signs Vital Signs: Vital Signs - 24 hr 07/26/22 12:00 07/26/22 12:00 07/26/22 14:00 Temperature 97.3 F L Pulse Rate 88 92 94 Respiratory Rate 16 Blood Pressure 135/71 Pulse Oximetry 99 Oxygen Delivery 07/26/22 16:00 07/26/22 16:00 07/26/22 12:00 Temperature 97.3 F L Pulse Rate 90 76 76 Respiratory Rate 20 20 Blood Pressure 124/75 Pulse Oximetry 99 99 Oxygen Delivery Room Air 07/26/22 16:00 07/26/22 16:00 07/26/22 18:00
[2022-07-27] MEDS: HEPARIN SOD/D5W 100 UNITS/ML 25,000 UNITS/250 ML BAG 19 UNITS IV CONT ×2 (12:17→22:27)
[2022-07-27] MEDS: WARFARIN (*PBKC) 2 MG TABLET PO (16:58)
[2022-07-27] MEDS: WARFARIN (*PBKC) 5 MG TABLET PO (16:58)
[2022-07-27] MEDS: traMADol HCL (*CRX) 50 MG TABLET PO (17:02)
--- NOTE | 2022-07-27 18:55 | PC.NURSE ---
This patient, Pawel Cagle, was transferred to [ [facility]] on 07/27/22 at 1845. Personal belongings sent with patient. Report given to [Carmelita ]. Appropriate documentation sent with patient.
[2022-07-27] MEDS: DOCUSATE SODIUM 100 MG CAPSULE PO (20:38)
[2022-07-27 21:20] LABS: Antithrombin III Activity 145 % normal (80-135)
[2022-07-27 22:22] LABS: Anti Cardio Antibody IgM <2.0 MPL-U/mL (<20.0); Anti Cardiolipin Antibody IgA 4.3 APL-U/mL (<20.0); Anti Cardiolipin Antibody IgG <2.0 GPL-U/mL (<20.0)
--- NOTE | 2022-07-27 23:28 | PC.NURSE ---
heparin bag changed; no titration necessary due to therapeutic levels. Next ptt 07/28/22 @0600.
[2022-07-28] VITALS (9 sets, daily range): BP systolic 121–142; BP diastolic 72–82; PULSE 69–88; RESP 16–18; TEMP 36.2–36.8; O2SAT 98–100
[2022-07-28] MEDS: HEPARIN SODIUM 5,000 UNITS/ML VIAL 4000 UNITS IV PUSH (06:37)
[2022-07-28] MEDS: DOCUSATE SODIUM 100 MG CAPSULE PO ×2 (08:03→20:32)
[2022-07-28] MEDS: PANTOPRAZOLE SODIUM IV 40 MG VIAL IV PUSH ×2 (08:03→20:31)
[2022-07-28 08:37] LABS: Prothrombin Time 13.1 Seconds (11.1-14.7)
[2022-07-28] MEDS: HEPARIN SOD/D5W 100 UNITS/ML 25,000 UNITS/250 ML BAG 21 UNITS IV CONT (10:35)
[2022-07-28 12:54] LABS: Partial Thromboplastin Time 74.9 SECONDS (22.3-36.8)
[2022-07-28] MEDS: APIXABAN 5 MG TABLET 10 MG PO ×2 (14:51→20:32)
[2022-07-28 17:57] LABS: Homocysteine 14.6 umol/L (<11.4)
[2022-07-29] VITALS: PULSE 65
[2022-07-29 00:12] VITALS: O2SAT 97
[2022-07-29 04:00] VITALS: PULSE 57
[2022-07-29 05:15] VITALS: BP 128/63; PULSE 64; RESP 17; TEMP 36.7; O2SAT 98
[2022-07-29 08:00] VITALS: PULSE 66
[2022-07-29] MEDS: APIXABAN 5 MG TABLET 10 MG PO (08:22)
[2022-07-29] MEDS: DOCUSATE SODIUM 100 MG CAPSULE PO (08:22)
[2022-07-29] MEDS: PANTOPRAZOLE SODIUM IV 40 MG VIAL IV PUSH (08:22)
--- NOTE | 2022-07-29 10:42 | PM.DS ---
DS: Admitting Diagnosis Discharge Date July 29, 2022 Admitting Diagnosis PE, DVT DS: Discharge Diagnosis Discharge Diagnosis (1) Pulmonary emboli: Code(s): I26.99 - Other pulmonary embolism without acute cor pulmonale Status: Acute (2) GERD (gastroesophageal reflux disease): Code(s): K21.9 - Gastro-esophageal reflux disease without esophagitis Status: Acute Assessment and Plan: Pantoprazole DS: Summary Hospital Course Hospital Course: patient recently has been homeless and has been driving around in his car lot and has immobility as a risk factor. Came in with some shortness of breath and leg pain. Was found have DVT and PE. Patient has recently started on heparin and switched over to Eliquis. He will be given a 30 day free Dosepak from the pharmacy. He will need to follow up with primary care physician. Patient is tolerating well not requiring oxygen ambulating and doing normal activities. Time Spent with Patient Time attestation: Total time spent providing and/or coordinating discharge services: Exam Const: General: cooperative, healthy appearing, comfortable, no acute distress, well developed, alert, awake, Physically active, average body habitus and well nourished Nutritional Appearance: average body habitus and well nourished Orientation/consciousness: oriented to person, oriented to place, oriented to time and patient oriented x3 Limitations: no limitations HENMT: Head: normal to inspection, No palpable skull fracture present, normocephalic and atraumatic Ears: hearing grossly normal bilaterally and external ears normal Face/Nose/Sinus: Normal external nose present and Normal nares present Eyes: General: appearance normal, both eyes and all related structures Alignment and Position: alignment normal Periorbital: periorbital findings normal Eyelids: eyelids normal Sclera: sclerae normal Pupils: Equal, round and reactive pupils present EOM: EOMs intact bilaterally Neck: Neck: normal visual inspection, full ROM, no lymphadenopathy, trachea midline and supple Chest: Chest palpation & inspection: normal inspection of the chest Resp: Effort & Inspection: normal respiratory effort Auscultation: clear to auscultation bilaterally Cardio: Palpation: normal PMI Rate: regular rate Rhythm: regular rhythm Heart sounds: S1 normal heart sound present and S2 normal heart sound present Peripheral pulses: Peripheral pulses 2+ throughout GI: Inspection: normal to inspection Auscultation: normal bowel sounds Rectal Exam: deferred Back/Spine/Pelvis: Cervical Spine: cervical ROM normal Skin: General skin exam: normal color Lesions: no lesions Rashes: no rashes Trauma: no lacerations or abrasions Wounds: no wounds Hair: normal Nails: normal Neuro: General: oriented to person, oriented to place, oriented to time and patient oriented x3 Cranial nerves: Yes Equal, round and reactive pupils present and Yes Normal hearing present Cognition (Neuro): normal cognition Speech: normal speech Gait exam (Neuro): Normal gait present Motor exam (neuro): 5/5 motor strength present throughout Sensory Exam: normal sensation Extrem: General: normal to inspection Right upper extremity: normal to inspection and shoulder/upper arm Left upper extremity: normal to inspection and shoulder/upper arm Right lower extremity: normal to inspection Left lower extremity: normal to inspection Psych: Appearance: grossly normal Mental Status: mental status grossly normal Speech and movement: Normal speech and movement present Affect: normal affect Attitude: cooperative Thought process: Normal thought process present Insight: Good insight present (Psych) Judgement: Good judgement present (Psych) DS: Data Data Completed and Pending Labs on day of discharge: Labs from last 24 hours 07/28/22 07/24/22 12:22 17:16 APTT 74.9 H Homocysteine 14.6 H Discharge Plan Discharge Attending phys
[2022-07-30 22:16] LABS: Anti Nuclear Antibody Pattern Nuclear, Speckled; Anti Nuclear Antibody Titer 1:40 (Negative)
[2022-07-31 21:17] LABS: Factor V (Leiden) Mutation NEGATIVE
== END 2022-07-29 11:15 | disposition home or self-care (01) | DRG 134 ==
LOC: ANHED 14:28 → ANHIMU 16:01 → ANH3MEDSUR 07-27 18:30
PROVIDERS: Internal Medicine; Nurse Practitioner; Admitting Provider Internal Medicine; Emergency Provider Emergency Medicine; Visit Provider Chiropractor
DX: I26.99 Other pulmonary embolism without acute cor pulmonale (principal); I82.432 Acute embolism and thrombosis of left popliteal vein; I82.442 Acute embolism and thrombosis of left tibial vein; K21.9 Gastro-esophageal reflux disease without esophagitis; Z20.822 Contact with and (suspected) exposure to COVID-19; Z59.00 Homelessness unspecified; Z87.891 Personal history of nicotine dependence
CPT/HCPCS: 36415; 71045; 71275; 80053; 81241; 81291; 83090; 83690; 83735; 84311; 84484; 85025; 85300; 85303; 85306; 85384; 85610; 85730; 86038; 86039; 86147; 93005; 93306; 93970; 96365; 96366; 99285; A9270; C9113; C9803; G0378; J1644; Q9967; U0003; U0005